=== PATIENT | male | born 1955 | race Caucasian/White ===

== ENCOUNTER 2020-07-25 14:29 | Emergency (ER) | payer MEDICARE, OTHER ==
[~2020-07-25] VITALS: Ht 177.8 cm; Wt 95.5 kg
[~2020-07-25 14:29] MED LIST: CHOL100046 PO; CITA40TA11 PO; DIPH25CA83 PO; FERR-86 PO; HYDR-3973 PO; LACT1CAP65 PO; LISI10TA4 PO; LORA0.5T PO; LOVA40TA2 PO; MULT-620 PO; PROP120C2 PO; VITAMIN B12
[2020-07-25 14:31] VITALS: BP 165/89
[2020-07-25] MEDS ORDERED: IBUP-1984 PO (15:34)
[2020-07-25] MEDS ORDERED: LIDO700A32 TOP (15:34)
[2020-07-25] MEDS ORDERED: HYDR-3965 PO (15:34)
[2020-07-25] MEDS ORDERED: ACET-2615 PO (15:34)
[2020-07-25] MEDS ORDERED: HYDROcodone/acetaminophen 10/325mg tab PO ONE (15:35)
[2020-07-25] MEDS ORDERED: ketorolac trometh inj. 60 MG/2 ML VIAL IM ONE (15:35)
[2020-07-25] MEDS ORDERED: ketorolac trometh. 30mg/ml inj. IM ONE (15:35)
[2020-07-25] MEDS ORDERED: ondansetron 4mg rapidly disintigrating tab PO ONE (15:35)
[2020-07-25] MEDS ORDERED: LIDOcaine 5% patch TP ONE (15:35)
[2020-07-25] MEDS ORDERED: acetaminophen 325mg tablet PO ONE (15:35)
[2020-07-26] MEDS ORDERED: HYDR-3965 PO (15:41)
[2020-07-26] MEDS ORDERED: LIDO700A32 TOP (15:41)
== END 2020-07-25 16:22 | disposition home or self-care (01) ==
LOC: ER 14:30
DX: R07.81 Pleurodynia (principal); R05 Cough; Z79.899 Other long term (current) drug therapy
CPT/HCPCS: 71046; 93005; 96372; 99284; J1885

== ENCOUNTER 2021-06-23 01:47 | Inpatient (IN) | payer MEDICARE, OTHER ==
[~2021-06-23] VITALS: Ht 172.7 cm; Wt 90.0 kg
[~2021-06-23 01:47] MED LIST changes: +LIDO700A32 TOP; +LISI10TA27 PO; -LISI10TA4 PO
[2021-06-23] MEDS ORDERED: piperacillin/tazo 3.375gm/50ml 50 ML IV ONE ×2 (02:05→05:45)
[2021-06-23] MEDS ORDERED: normal saline 1000ML IV soln IV ONE (02:05)
[2021-06-23] MEDS ORDERED: morphine 4 MG/ML inj SYRINge IV ONE (02:30)
[2021-06-23] MEDS ORDERED: ondansetron/PF 4mg/2ml inj IV ONE (02:30)
[2021-06-23] MEDS ORDERED: acetaminophen 325mg tablet PO ONE (02:30)
[2021-06-23 02:37] LABS: BASOPHILS % (AUTO) 0.2 % (0-1); EOSINOPHILS # (AUTO) 0.1 X10'3 (0-0.9); EOSINOPHILS % (AUTO) 1.1 % (0-6); HEMATOCRIT 34.7 % (42.0-52.0); HEMOGLOBIN 10.9 g/dl (14.0-17.9); LYMPHOCYTES # (AUTO) 0.5 X10'3 (1.1-4.8); LYMPHOCYTES % (AUTO) 5.8 % (21-51); MEAN CORPUSCULAR HEMOGLOBIN 26.1 PG (27.0-31.0); MEAN CORPUSCULAR HGB CONC 31.5 g/dL (33.0-36.5); MEAN PLATELET VOLUME 8.2 FL (7.4-10.4); MONOCYTES # (AUTO) 0.8 X10'3 (0-0.9); MONOCYTES % (AUTO) 9.5 % (2-12); NEUTROPHILS % (AUTO) 83.4 % (42-75); PLATELET COUNT 280 X10'3 (140-440); RED BLOOD COUNT 4.18 X10'6 (4.70-6.10); RED CELL DISTRIBUTION WIDTH 16.1 % (11.5-14.5); WHITE BLOOD COUNT 8.4 X10'3 (4.5-11.0)
[2021-06-23 04:12] LABS: CLARITY,URINE CLEAR (Clear); COLOR,URINE YELLOW (Yellow); GLUCOSE, URINE NEGATIVE (Neg); KETONES,URINE NEGATIVE (Neg); LEUKOCYTE ESTERASE ,URINE NEGATIVE (Neg); NITRITES, URINE NEGATIVE (Neg); OCCULT BLOOD,URINE TRACE-INTACT (Neg); PH,URINE 5.5 (4.8-8.0); PROTEIN,URINE 100 mg/dl (Neg); UROBILINOGEN,URINE 0.2 E.U/dL (0.2-1.0)
[2021-06-23 04:13] LABS: ALANINE AMINOTRANSFERASE 24 U/L (12-78); ALBUMIN 2.9 G/DL (3.4-5.0); ALBUMIN/GLOBULIN RATIO 0.8 (1.1-1.5); ALKALINE PHOSPHATASE 57 IU/L (46-116); ANION GAP 15 (8-16); ASPARTATE AMINO TRANSFERASE 23 U/L (10-37); BILIRUBIN,TOTAL 0.5 MG/DL (0.1-1.0); BLOOD UREA NITROGEN 11 MG/DL (7-18); BUN/CREATININE RATIO 9.6 (5.4-32.0); CALCIUM 8.1 MG/DL (8.5-10.1); CHLORIDE 99 MMOL/L (99-107); CREATININE 1.15 MG/DL (0.60-1.10); GLUCOSE 120 MG/DL (70-104); MAGNESIUM 1.4 MG/DL (1.5-2.4); POTASSIUM 3.4 MMOL/L (3.5-5.1); SODIUM 135 MMOL/L (135-145); TOTAL CARBON DIOXIDE 20.7 MMOL/L (24-32); TOTAL PROTEIN 6.7 G/DL (6.4-8.2); eGFR 63 ML/MIN
[2021-06-23 04:24] LABS: UA COLLECTION TYPE CLN CATCH MIDSTREAM; WBC,URINE 0-4 /HPF (0-4)
[2021-06-23 04:25] LABS: BACTERIA,URINE NONE SEEN /HPF (Neg); RBC,URINE 0-2 /HPF (0-2); SQUAMOUS EPITHELIAL CELL,UR FEW /LPF (FEW)
[2021-06-23] MEDS ORDERED: iohexol 300mg/ml 100ml inj. ONE (04:58)
[2021-06-23] MEDS ORDERED: magnesium 2GM in 50ml NS 50 ML IV ONE (05:05)
[2021-06-23] MEDS ORDERED: potassium Cl 10 mEq/100mL bag IV ONE (05:45)
[2021-06-23] MEDS ORDERED: acetaminophen 325mg tablet PO PRN ×2 (06:25)
[2021-06-23] MEDS ORDERED: magnesium Cl slow-release 64mg tablet PO PRN (06:25)
[2021-06-23] MEDS ORDERED: magnesium hydroxide 30ml (MOM) UD suspension PO PRN (06:25)
[2021-06-23] MEDS ORDERED: potassium Cl 20 mEq SR tablet PO PRN ×2 (06:25)
[2021-06-23] MEDS ORDERED: mag hydrox/Alum hydrox/simeth 30ml oral suspension PO PRN (06:25)
[2021-06-23] MEDS ORDERED: potassium Cl 40MEQ/1/2NS 520ml 520 ML IV PRN ×2 (06:25)
[2021-06-23] MEDS ORDERED: magnesium 4gm in 100ml NS 100 ML IV PRN (06:25)
[2021-06-23] MEDS ORDERED: HYDROcodone/acetaminophen 5mg/325mg tablet PO PRN (06:25)
[2021-06-23] MEDS ORDERED: magnesium 2GM in 50ml NS 50 ML IV PRN (06:25)
[2021-06-23] MEDS ORDERED: ondansetron/PF 4mg/2ml inj IV PRN (06:25)
[2021-06-23] MEDS: normal saline 1000ml 1,000 ML IV SCH ×2 (06:25→16:25)
--- NOTE | 2021-06-23 06:31 | NUR ---
patient on bed asleep,we will monitor.
[2021-06-23] MEDS ORDERED: METO50TA17 PO (07:36)
[2021-06-23] MEDS ORDERED: LISI20TA28 PO (07:36)
[2021-06-23] MEDS ORDERED: FENO200C PO (07:36)
[2021-06-23] MEDS: docusate sod 100mg capsule PO SCH ×2 (08:00→19:15)
[2021-06-23] MEDS: K and/or MAG REPLACEMENT MC SCH ×2 (08:00→19:15)
[2021-06-23] MEDS: nicotine 14mg patch - 24hr TD SCH (08:32)
[2021-06-23] MEDS: pantoprazole 40mg Tablet.DR PO SCH (08:32)
[2021-06-23] MEDS: heparin, porcine 5000 units/ml vial SQ SCH ×2 (08:34→19:42)
--- NOTE | 2021-06-23 08:41 | NUR ---
patient refused breakfast.call light within reach.due meds given.
[2021-06-23 08:53] LABS: URINE AMPHETAMINE SCREEN NEGATIVE (Neg); URINE BARBITUATE SCREEN NEGATIVE (Neg); URINE BENZODIAZEPINES SCREEN NEGATIVE (Neg); URINE CANNABINOID SCREEN NEGATIVE (Neg); URINE COCAINE SCREEN NEGATIVE (Neg); URINE METHADONE SCREEN NEGATIVE (Neg); URINE OPIATE SCREEN POSITIVE (Neg); URINE PHENCYCLIDINE SCREEN NEGATIVE (Neg)
[2021-06-23 09:04] LABS: ETHANOL < 0.010 GM/DL (0.0-0.010)
[2021-06-23 09:43] LABS: ALBUMIN 2.6 G/DL (3.4-5.0); ANION GAP 10 (8-16); BLOOD UREA NITROGEN 9 MG/DL (7-18); BUN/CREATININE RATIO 9.5 (5.4-32.0); CALCIUM 7.7 MG/DL (8.5-10.1); CHLORIDE 104 MMOL/L (99-107); CREATININE 0.95 MG/DL (0.60-1.10); GLUCOSE 102 MG/DL (70-104); POTASSIUM 4.3 MMOL/L (3.5-5.1); SODIUM 139 MMOL/L (135-145); TOTAL CARBON DIOXIDE 24.7 MMOL/L (24-32); eGFR 79 ML/MIN
[2021-06-23] MEDS: metroNIDAZOLE-Flagyl 500mg/NS 100 ML IV SCH ×3 (10:38→23:53)
--- NOTE | 2021-06-23 11:16 | NUR ---
patient asleep.We will monitor.
[2021-06-23] MEDS: levoFLOXACIN-Levaquin 750MG/D5 150 ML IV SCH (11:38)
--- NOTE | 2021-06-23 11:42 | NUR ---
tried weaning aptient off oxygen saturation dropped to 77 with a good plathe.
--- NOTE | 2021-06-23 11:43 | NUR ---
octaviano 99% on 2 L nc.
--- NOTE | 2021-06-23 13:20 | NUR ---
assisted patient on a hospital bed.
--- NOTE | 2021-06-23 13:49 | NUR ---
patient up to the bathroom.
--- NOTE | 2021-06-23 13:52 | NUR ---
spouse at beside.
[2021-06-23] MEDS: morphine 2 MG/ML inj. syringe IV PRN ×2 (15:02→20:30)
--- NOTE | 2021-06-23 16:59 | NUR ---
spirometer at bedside.
--- NOTE | 2021-06-23 17:00 | NUR ---
Will from Dr. Roe,clear liquid diet,spirometer,duoneb [id number] scheduled.
[2021-06-23] MEDS: LORazepam 1 MG tablet PO PRN (17:01)
[2021-06-23] MEDS: metoprolol tartrate 50mg tablet PO SCH (19:42)
[2021-06-23] MEDS: LORazepam 0.5 MG tablet PO SCH (19:42)
[2021-06-23] MEDS: lactobacillus rhamnosus 10,000 MMU CELLS/CAPSULE PO SCH (19:42)
[2021-06-23] MEDS: ipratropium/albuterol 3ml nebule NEB SCH (21:32)
[2021-06-24] MEDS: LORazepam 2 mg/ml vial IV PRN ×2 (00:29→20:40)
[2021-06-24] MEDS: normal saline 1000ml 1,000 ML IV SCH ×3 (02:17→22:25)
[2021-06-24] MEDS: ipratropium/albuterol 3ml nebule NEB SCH ×4 (04:05→20:29)
[2021-06-24] MEDS: K and/or MAG REPLACEMENT MC SCH ×2 (08:00→20:26)
[2021-06-24] MEDS: docusate sod 100mg capsule PO SCH ×2 (08:00→20:00)
[2021-06-24] MEDS: metoprolol tartrate 50mg tablet PO SCH ×2 (08:26→20:40)
[2021-06-24] MEDS: multivitamins, therapeutics tablet PO SCH (08:26)
[2021-06-24] MEDS: pantoprazole 40mg Tablet.DR PO SCH (08:26)
[2021-06-24] MEDS: LORazepam 0.5 MG tablet PO SCH ×2 (08:26→20:40)
[2021-06-24] MEDS: lactobacillus rhamnosus 10,000 MMU CELLS/CAPSULE PO SCH ×2 (08:26→20:40)
[2021-06-24] MEDS: heparin, porcine 5000 units/ml vial SQ SCH ×2 (08:26→20:40)
[2021-06-24] MEDS: nicotine 14mg patch - 24hr TD SCH (08:27)
[2021-06-24] MEDS: lisinopril 20mg tablet PO SCH (08:27)
[2021-06-24] MEDS: metroNIDAZOLE-Flagyl 500mg/NS 100 ML IV SCH ×2 (08:28→16:46)
[2021-06-24] MEDS: morphine 2 MG/ML inj. syringe IV PRN ×3 (08:37→20:40)
[2021-06-24] MEDS: fenofibrate 145mg tablet PO SCH (08:37)
[2021-06-24] MEDS: levoFLOXACIN-Levaquin 750MG/D5 150 ML IV SCH (10:05)
[2021-06-24 11:20] LABS: BASOPHILS % (AUTO) 0.7 % (0-1); EOSINOPHILS # (AUTO) 0.1 X10'3 (0-0.9); EOSINOPHILS % (AUTO) 1.8 % (0-6); HEMATOCRIT 31.4 % (42.0-52.0); HEMOGLOBIN 10.3 g/dl (14.0-17.9); LYMPHOCYTES # (AUTO) 0.8 X10'3 (1.1-4.8); LYMPHOCYTES % (AUTO) 17.7 % (21-51); MEAN CORPUSCULAR HEMOGLOBIN 27.1 PG (27.0-31.0); MEAN CORPUSCULAR HGB CONC 32.9 g/dL (33.0-36.5); MEAN CORPUSCULAR VOLUME 82.4 FL (78-98); MONOCYTES # (AUTO) 0.7 X10'3 (0-0.9); MONOCYTES % (AUTO) 14.6 % (2-12); NEUTROPHILS # (AUTO) 2.9 X10'3 (1.8-7.7); NEUTROPHILS % (AUTO) 65.2 % (42-75); PLATELET COUNT 336 X10'3 (140-440); RED BLOOD COUNT 3.82 X10'6 (4.70-6.10); WHITE BLOOD COUNT 4.5 X10'3 (4.5-11.0)
[2021-06-24 11:37] LABS: ALANINE AMINOTRANSFERASE 20 U/L (12-78); ALBUMIN 2.5 G/DL (3.4-5.0); ALBUMIN/GLOBULIN RATIO 0.7 (1.1-1.5); ALKALINE PHOSPHATASE 40 IU/L (46-116); ANION GAP 7 (8-16); ASPARTATE AMINO TRANSFERASE 18 U/L (10-37); BILIRUBIN,TOTAL 0.2 MG/DL (0.1-1.0); BLOOD UREA NITROGEN 7 MG/DL (7-18); BUN/CREATININE RATIO 6.7 (5.4-32.0); CALCIUM 7.9 MG/DL (8.5-10.1); CHLORIDE 103 MMOL/L (99-107); CREATININE 1.04 MG/DL (0.60-1.10); GLUCOSE 116 MG/DL (70-104); POTASSIUM 3.4 MMOL/L (3.5-5.1); SODIUM 138 MMOL/L (135-145); TOTAL CARBON DIOXIDE 28.2 MMOL/L (24-32); eGFR 71 ML/MIN
--- NOTE | 2021-06-24 15:07 | NUR ---
PT SITTING ON SIDE OF BED, NO DISTRESS NOTED. PT GIVEN NEW FACEMASK
--- NOTE | 2021-06-24 21:07 | NUR ---
Patient in room ED 7. I have received report from SIVA Peraza RN and had the opportunity to ask questions and assume patient care.
[2021-06-24] MEDS: diatr meglu/diatrizoate 30ml oral sol.-(3 dose) bottle PO SCH (21:50)
[2021-06-24 22:00] VITALS: BP 142/88
[2021-06-25] VITALS: BP 152/83
[2021-06-25] MEDS: metroNIDAZOLE-Flagyl 500mg/NS 100 ML IV SCH ×4 (00:41→23:37)
[2021-06-25] MEDS: morphine 2 MG/ML inj. syringe IV PRN (00:54)
[2021-06-25] MEDS: ipratropium/albuterol 3ml nebule NEB SCH ×4 (02:00→20:43)
[2021-06-25 02:20] VITALS: BP 152/83
[2021-06-25 03:35] LABS: OCCULT BLOOD STOOL NEGATIVE (Neg)
[2021-06-25 05:40] LABS: BASOPHILS % (AUTO) 0.6 % (0-1); EOSINOPHILS # (AUTO) 0.3 X10'3 (0-0.9); EOSINOPHILS % (AUTO) 4.7 % (0-6); HEMATOCRIT 30.2 % (42.0-52.0); HEMOGLOBIN 9.8 g/dl (14.0-17.9); LYMPHOCYTES # (AUTO) 1.3 X10'3 (1.1-4.8); MEAN CORPUSCULAR HEMOGLOBIN 26.7 PG (27.0-31.0); MEAN CORPUSCULAR HGB CONC 32.5 g/dL (33.0-36.5); MEAN CORPUSCULAR VOLUME 82.3 FL (78-98); MEAN PLATELET VOLUME 7.6 FL (7.4-10.4); MONOCYTES % (AUTO) 16.3 % (2-12); NEUTROPHILS # (AUTO) 3.4 X10'3 (1.8-7.7); NEUTROPHILS % (AUTO) 56.4 % (42-75); PLATELET COUNT 352 X10'3 (140-440); RED BLOOD COUNT 3.67 X10'6 (4.70-6.10); RED CELL DISTRIBUTION WIDTH 16.4 % (11.5-14.5); WHITE BLOOD COUNT 6.1 X10'3 (4.5-11.0)
[2021-06-25 06:11] LABS: % IRON SATURATION 8 % (11-46); IRON 25 UG/DL (53-167); TOTAL IRON BINDING CAPACITY 308 UG/DL (259-388)
--- NOTE | 2021-06-25 06:20 | NUR ---
software tools developer Ede (KHURRAM) RN and myself were about toapply DNR armband on this patient but when he was asked by KHURRAM if he knows what DNR means, patient said No and asked what DNR means. We explained to him that DNR(do not resuscitate) means no chest compression, no intubation, no defibrillation, and no emergency medications in case his heart stopped or he stopped breathing. Patient was alert, oriented x 4. Patient stated "I just don't want to be a vegetable"!". When we asked patient if he wants everything (CPR, intubation, defibrillation, and emergency drugs) done to bring him back in case of emergency, he said to us yes. Will notify the daytime hospitalist about this today
[2021-06-25 06:26] LABS: ALANINE AMINOTRANSFERASE 20 U/L (12-78); ALBUMIN 2.4 G/DL (3.4-5.0); ALBUMIN/GLOBULIN RATIO 0.7 (1.1-1.5); ALKALINE PHOSPHATASE 34 IU/L (46-116); ANION GAP 7 (8-16); ASPARTATE AMINO TRANSFERASE 15 U/L (10-37); BILIRUBIN,TOTAL 0.2 MG/DL (0.1-1.0); BLOOD UREA NITROGEN 7 MG/DL (7-18); BUN/CREATININE RATIO 7.2 (5.4-32.0); CALCIUM 8.1 MG/DL (8.5-10.1); CHLORIDE 105 MMOL/L (99-107); CREATININE 0.97 MG/DL (0.60-1.10); FERRITIN 59 NG/ML (26-388); GLUCOSE 94 MG/DL (70-104); MAGNESIUM 1.7 MG/DL (1.5-2.4); PHOSPHORUS 2.9 MG/DL (2.3-4.5); POTASSIUM 3.7 MMOL/L (3.5-5.1); SODIUM 138 MMOL/L (135-145); TOTAL CARBON DIOXIDE 26.4 MMOL/L (24-32); TOTAL PROTEIN 5.7 G/DL (6.4-8.2); eGFR 77 ML/MIN
--- NOTE | 2021-06-25 06:37 | NUR ---
Problems reprioritized. Patient report given, questions answered & plan of care reviewed with Amira DUBON.
--- NOTE | 2021-06-25 06:41 | NUR ---
Patient in room [facility]. I have received report from Ede RAHMAN) JAGDISH and had the opportunity to ask questions and assume patient care.
[2021-06-25 07:00] VITALS: BP 166/89
[2021-06-25] MEDS: diatr meglu/diatrizoate 30ml oral sol.-(3 dose) bottle PO SCH ×2 (07:22→10:17)
[2021-06-25 07:27] LABS: TOTAL CELLS COUNTED 100
[2021-06-25 07:29] LABS: ANISOCYTOSIS 1+; PLATELET ESTIMATE NORMAL; POIKILOCYTOSIS FEW
[2021-06-25 07:29] LABS: C DIFF ANTIGEN NEGATIVE (NEGATIVE); C DIFF SPECIMEN=DIARRHEA? ACCEPTABLE; C DIFFICILE TOXINS A&B NEGATIVE (Neg)
[2021-06-25] MEDS: normal saline 1000ml 1,000 ML IV SCH ×2 (07:29→21:46)
[2021-06-25] MEDS: nicotine 14mg patch - 24hr TD SCH ×2 (08:00→11:35)
[2021-06-25] MEDS: K and/or MAG REPLACEMENT MC SCH ×2 (08:00→19:09)
[2021-06-25] MEDS: docusate sod 100mg capsule PO SCH ×2 (08:00→19:25)
[2021-06-25] MEDS: fenofibrate 145mg tablet PO SCH (08:30)
[2021-06-25] MEDS: levoFLOXACIN-Levaquin 750MG/D5 150 ML IV SCH (08:41)
[2021-06-25] MEDS: LORazepam 0.5 MG tablet PO SCH ×2 (09:32→19:31)
--- NOTE | 2021-06-25 10:06 | NUR ---
Paged Dr. Roe PAGER ID: [phone] MESSAGE: Surgical Amira RN ext [phone]. RE: Kemar Brito. Patient wants to talk to you when you make rounds about changing his code status to full code.
[2021-06-25] MEDS ORDERED: iohexol 300mg/ml 100ml inj. ONE (10:18)
--- NOTE | 2021-06-25 10:24 | NUR ---
Patient just left the room going to CT scan department
[2021-06-25 11:00] VITALS: BP 159/95
[2021-06-25] MEDS: multivitamins, therapeutics tablet PO SCH (11:35)
[2021-06-25] MEDS: lisinopril 20mg tablet PO SCH (11:35)
[2021-06-25] MEDS: metoprolol tartrate 50mg tablet PO SCH ×2 (11:36→19:30)
[2021-06-25] MEDS: pantoprazole 40mg Tablet.DR PO SCH (11:36)
[2021-06-25] MEDS: heparin, porcine 5000 units/ml vial SQ SCH ×2 (11:36→19:31)
[2021-06-25] MEDS: lactobacillus rhamnosus 10,000 MMU CELLS/CAPSULE PO SCH ×2 (11:36→19:30)
[2021-06-25] MEDS ORDERED: NICOTINE POLACRILEX 2 MG LOZENGE BC PRN (13:05)
[2021-06-25] MEDS: MINI PO PRN ×3 (15:06→21:44)
[2021-06-25] MEDS: NICOTINE POLACRILEX 2 MG PO PRN ×3 (15:06→21:44)
--- NOTE | 2021-06-25 18:31 | NUR ---
Problems reprioritized. Patient report given, questions answered & plan of care reviewed with Manjinder DUBON.
[2021-06-25 20:00] VITALS: BP 155/81
[2021-06-25] MEDS: LORazepam 1 MG tablet PO PRN (21:44)
[2021-06-26] VITALS: BP 158/87
[2021-06-26] MEDS: ipratropium/albuterol 3ml nebule NEB SCH ×2 (02:00→08:00)
[2021-06-26] MEDS: normal saline 1000ml 1,000 ML IV SCH (04:25)
--- NOTE | 2021-06-26 06:14 | NUR ---
Patient in room [facility]. I have received report from Manjinder UDBON and had the opportunity to ask questions and assume patient care.
[2021-06-26 06:19] LABS: BASOPHILS # (AUTO) 0.1 X10'3 (0-0.2); BASOPHILS % (AUTO) 0.9 % (0-1); EOSINOPHILS # (AUTO) 0.4 X10'3 (0-0.9); EOSINOPHILS % (AUTO) 6.8 % (0-6); HEMATOCRIT 32.5 % (42.0-52.0); HEMOGLOBIN 10.5 g/dl (14.0-17.9); LYMPHOCYTES # (AUTO) 1.5 X10'3 (1.1-4.8); MEAN CORPUSCULAR HEMOGLOBIN 26.6 PG (27.0-31.0); MEAN CORPUSCULAR HGB CONC 32.2 g/dL (33.0-36.5); MEAN CORPUSCULAR VOLUME 82.6 FL (78-98); MEAN PLATELET VOLUME 7.8 FL (7.4-10.4); MONOCYTES # (AUTO) 0.6 X10'3 (0-0.9); MONOCYTES % (AUTO) 10.1 % (2-12); NEUTROPHILS # (AUTO) 3.7 X10'3 (1.8-7.7); NEUTROPHILS % (AUTO) 58.2 % (42-75); PLATELET COUNT 433 X10'3 (140-440); RED BLOOD COUNT 3.94 X10'6 (4.70-6.10); RED CELL DISTRIBUTION WIDTH 16.5 % (11.5-14.5); WHITE BLOOD COUNT 6.3 X10'3 (4.5-11.0)
--- NOTE | 2021-06-26 06:20 | NUR ---
Problems reprioritized. Patient report given, questions answered & plan of care reviewed with TAMIR. Addendum: 06/26/21 at 0620 by Francisco J Santana RN Amended: Links added.
[2021-06-26 06:26] LABS: ALANINE AMINOTRANSFERASE 25 U/L (12-78); ALBUMIN 2.5 G/DL (3.4-5.0); ALBUMIN/GLOBULIN RATIO 0.8 (1.1-1.5); ALKALINE PHOSPHATASE 47 IU/L (46-116); ANION GAP 11 (8-16); ASPARTATE AMINO TRANSFERASE 18 U/L (10-37); BILIRUBIN,TOTAL 0.2 MG/DL (0.1-1.0); BLOOD UREA NITROGEN 6 MG/DL (7-18); BUN/CREATININE RATIO 6.4 (5.4-32.0); CALCIUM 8.3 MG/DL (8.5-10.1); CHLORIDE 107 MMOL/L (99-107); CREATININE 0.94 MG/DL (0.60-1.10); GLUCOSE 87 MG/DL (70-104); MAGNESIUM 1.7 MG/DL (1.5-2.4); PHOSPHORUS 4.1 MG/DL (2.3-4.5); POTASSIUM 3.9 MMOL/L (3.5-5.1); SODIUM 142 MMOL/L (135-145); TOTAL CARBON DIOXIDE 24.5 MMOL/L (24-32); TOTAL PROTEIN 5.8 G/DL (6.4-8.2); eGFR 80 ML/MIN
[2021-06-26 07:00] VITALS: BP 163/85
[2021-06-26] MEDS: NICOTINE POLACRILEX 2 MG PO PRN (07:53)
[2021-06-26] MEDS: MINI PO PRN (07:53)
[2021-06-26] MEDS: lisinopril 20mg tablet PO SCH (07:54)
[2021-06-26] MEDS: lactobacillus rhamnosus 10,000 MMU CELLS/CAPSULE PO SCH (07:54)
[2021-06-26] MEDS: metroNIDAZOLE-Flagyl 500mg/NS 100 ML IV SCH (07:54)
[2021-06-26] MEDS: LORazepam 0.5 MG tablet PO SCH (07:54)
[2021-06-26] MEDS: pantoprazole 40mg Tablet.DR PO SCH (07:54)
[2021-06-26 07:55] VITALS: BP_SYST 167
[2021-06-26] MEDS: heparin, porcine 5000 units/ml vial SQ SCH (07:55)
[2021-06-26] MEDS: metoprolol tartrate 50mg tablet PO SCH (07:55)
[2021-06-26] MEDS: fenofibrate 145mg tablet PO SCH (07:55)
[2021-06-26] MEDS: multivitamins, therapeutics tablet PO SCH (07:55)
[2021-06-26] MEDS: K and/or MAG REPLACEMENT MC SCH (08:00)
[2021-06-26] MEDS: docusate sod 100mg capsule PO SCH (08:00)
[2021-06-26] MEDS: levoFLOXACIN-Levaquin 750MG/D5 150 ML IV SCH (09:01)
[2021-06-26] MEDS ORDERED: PANT40TA54 PO (09:45)
[2021-06-26] MEDS ORDERED: LACT1CAP26 PO (09:45)
[2021-06-26] MEDS ORDERED: METR-159 PO (09:45)
[2021-06-26] MEDS ORDERED: LEVO750T46 PO (09:45)
[2021-06-26] MEDS ORDERED: THIA50TA10 PO (09:45)
[2021-06-26] MEDS ORDERED: FOLI0.4T6 PO (09:45)
--- NOTE | 2021-06-26 11:12 | NUR ---
Discharged patient home accompanied by his daughter. Discharge instructions given to patient and the daughter, both verbalized understanding of all instructions made. Peripheral IV catheter removed, tip intact. Patient's own medication Nicotine lozenges that was stored in the hospital pharmacy was returned to patient during discharge. New prescription e-sent to the pharmacy of choice. Instructed patient to ensure he has all the belongings with him before leaving the hospital.
== END 2021-06-26 11:09 | disposition home or self-care (01) | DRG 392 ==
LOC: ER 01:48 → ED HOLD 06:27 → SUR 3N 06-24 21:44
PROVIDERS: ADMIT Internal Medicine; ATTEND Family Medicine
PROC: B32T1ZZ Computerized Tomography (CT Scan) of Left Pulmonary Artery using Low Osmolar Contrast (ICD-10-PCS; principal; 2021-06-23)
PROC: B3201ZZ Computerized Tomography (CT Scan) of Thoracic Aorta using Low Osmolar Contrast (ICD-10-PCS; 2021-06-23)
PROC: B32S1ZZ Computerized Tomography (CT Scan) of Right Pulmonary Artery using Low Osmolar Contrast (ICD-10-PCS; 2021-06-23)
PROC: BW211ZZ Computerized Tomography (CT Scan) of Abdomen and Pelvis using Low Osmolar Contrast (ICD-10-PCS; 2021-06-23)
PROC: BW211ZZ Computerized Tomography (CT Scan) of Abdomen and Pelvis using Low Osmolar Contrast (ICD-10-PCS; 2021-06-25)
DX: K57.32 Diverticulitis of large intestine without perforation or abscess without bleeding (principal); K52.9 Noninfective gastroenteritis and colitis, unspecified; E87.6 Hypokalemia; D64.9 Anemia, unspecified; E83.42 Hypomagnesemia; Z66 Do not resuscitate; F10.10 Alcohol abuse, uncomplicated; Z20.822 Contact with and (suspected) exposure to COVID-19; F41.9 Anxiety disorder, unspecified; F17.210 Nicotine dependence, cigarettes, uncomplicated; I10 Essential (primary) hypertension; Z71.41 Alcohol abuse counseling and surveillance of alcoholic; Z71.6 Tobacco abuse counseling
CPT/HCPCS: 36415; 71045; 71275; 74177; 74178; 80048; 80053; 80305; 80320; 81001; 82272; 82728; 82948; 83540; 83550; 83605; 83735; 84100; 84145; 85007; 85025; 87040; 87081; 87324; 87449; 87635; 93005; 94640; 94760; 96365; 97116; 97161; 97530; 99285; C9803; G0378; J1644; J1956; J2060; J2270; J2405; J2543; J3475; J3480; J3490; J7030; Q9963; Q9967